=== PATIENT | male | born 1950 | race Caucasian/White ===

== ENCOUNTER 2021-01-10 06:37 | Emergency (ER) | payer MEDICARE, BC, SELFPAY ==
[2021-01-10] VITALS (7 sets, daily range): BP systolic 105–130; BP diastolic 63–87; PULSE 55–71; RESP 13–18; TEMP 36.3; O2SAT 96–100
--- NOTE | ~2021-01-10 | XR_ITS ---
EXAMINATION: XR chest 1V portable DATE: 01/10/2021 07:25 INDICATION: Chest pain post stent placement TECHNIQUE: frontal view of the chest was obtained. COMPARISON: Chest radiograph dated 02/26/2009 FINDINGS: Lung volumes are mildly decreased compared with the prior study. No focal airspace opacities, pulmona ry edema, pleural effusion or pneumothorax. Cardiomediastinal silhouette is normal. Visualized bones and soft tissues are unremarkable. IMPRESSION: 1. No acute cardiopulmonary disease. Reviewed, dictated and finalized at location A.
--- NOTE | 2021-01-10 06:39 | PC.NURSE ---
Pt presents to ED with complaints of chest pain that onset yesterday evening. Pt given 324 asa and nitro x3 by ems while en route with pain relief. Pt denies chest pain and sob at this time. Pt states he had x1 cardiac stent placed x3 days ago. Pt alert and oriented x4 at this time. Breathing is even and unlabored with O2 saturation of 100%. Pt states chest pain was persistent for over 24 hours and was sharp and burning pressure to midsternum. Pt denies nausea, emesis and visual disturbances at time of onset. Pt placed on liquid flavor compounder, pulse oximeter and BP cuff. Pt resting on cart in its lowest position with call button and personal items within reach. Pt advised to press call button for assistance.
--- NOTE | 2021-01-10 06:45 | PC.NURSE ---
EKG completed upon arrival. Son presented to bedside and is aware of poc. All questions and concerns addressed.
[2021-01-10] MEDS: ASPIRIN 81 MG CHEWABLE TABLET PO (06:56)
[2021-01-10 07:04] LABS: Basophils Percent Auto 0.5 % (0.2-1.2); Eosinophils Absolute Auto 0.2 K/mm3 (0-0.3); Eosinophils Percent Auto 3.7 % (0-4.4); Hemoglobin 12.6 g/dL (14.0-18.0); Immature Granulocyte Absolute 0.01 K/mm3 (0.00-0.031); Immature Granulocyte Percent A 0.2 % (0-0.5); Lymphocytes Absolute Auto 1.37 K/mm3 (0.9-3.2); Lymphocytes Percent Auto 31.9 % (18.3-44.2); Mean Corpuscular Hemoglobin 31.3 pg (26-34); Mean Corpuscular Volume 89.6 fl (80-100); Monocytes Absolute Auto 0.4 K/mm3 (0.1-0.6); Monocytes Percent Auto 9.3 % (2.6-8.5); Neutrophils Absolute Auto 2.3 K/mm3 (1.3-6.7); Neutrophils Percent Auto 54.4 % (45.5-73.1); Platelet Count Result 154 k/mm3 (150-375); Red Blood Count 4.02 M/mm3 (4.6-6.20); Red Cell Distribution Width 12.5 % (11.5-14.5); White Blood Count 4.3 K/mm3 (4.5-10.0)
[2021-01-10 07:14] LABS: Alanine Aminotransferase 14 U/L (4-50); Alkaline Phosphatase 36 U/L (38-126); Anion Gap 4 mmol/L (8-16); Aspartate Amino Transferase 19 U/L (17-59); Bilirubin,Total 0.9 mg/dL (0.2-1.3); Blood Urea Nitrogen 13 mg/dL (9-20); Calcium 9.4 mg/dL (8.4-10.2); Carbon Dioxide 27 mmol/L (22-30); Chloride 108 mmol/L (98-107); Estimated CRCL calculation 45 ml/min; Estimated Glomerular Filt Rate 50; Glucose 114 mg/dL (75-110); Lipase 55 U/L (23-300); Potassium 3.7 mmol/L (3.4-5.0); Sodium 139 mmol/L (137-145)
[2021-01-10 07:17] LABS: Prothrombin Time 13.8 Seconds (11.1-14.7)
[2021-01-10 07:18] LABS: Partial Thromboplastin Time 22.4 SECONDS (22.3-36.8)
[2021-01-10 07:25] LABS: NT Pro B Type Natriuretic Pept 128 PG/ML (5-100); Troponin I 0.025 ng/mL (0.000-0.034)
--- NOTE | 2021-01-10 07:51 | ED.CHESTPAIN ---
HPI - Chest Pain General Chief Complaint: Chest Pain Stated Complaint: CP Time Seen by Provider: 01/10/21 07:28 Source: patient, family and EMS Mode of arrival: EMS Limitations: no limitations History of Present Illness HPI narrative: 70 years old white male presented to the ED with retrosternal chest pain started yesterday noon has been steady since. Got better on nitroglycerin this morning, and much better on nitroglycerin by the ambulance prior to arrival. The pain was 8 out of 10 yesterday, currently 2 out of 10. Patient is status post cardiac cath, stent placement 3 days ago, got discharged from the hospital 1 day later. Patient denies any fever, chills, nausea, vomiting, diarrhea, constipation, shortness of breath, back pain. Patient had a cardiac cath at , Dr. Hernandez, the dam tender assistant Related Data Home Medications Medication Instructions Recorded Confirmed aspirin 325 mg tablet 325 mg PO DAILY 08/09/19 09/11/20 cyanocobalamin (vitamin B-12) 500 500 mcg PO DAILY 08/09/19 09/11/20 mcg tablet Allergies Allergy/AdvReac Type Severity Reaction Status Date / Time No Known Allergies Allergy Verified 01/10/21 06:55 Review of Systems Review of Systems: Narrative: CONSTITUTIONAL: Denies fever, chills, or sweats. EYES: Denies visual changes, redness, or discharge. ENT: Denies rhinorrhea, congestion, sore throat, or otalgia. CARDIOVASCULAR: Denies chest pain, palpitations, or edema. RESPIRATORY: Denies cough or dyspnea. GASTROINTESTINAL: Denies abdominal pain, nausea, vomiting, or diarrhea. GENITOURINARY: Denies dysuria or hematuria. SKIN: Denies rash or itching. MUSCULOSKELETAL: Denies back pain, joint pain, or myalgia. NEUROLOGIC: Denies headache, numbness, or weakness. PSYCHIATRIC: Denies anxiety or depression. [facility] Past Medical History Medical History Abnormal fasting glucose Diplopia Family History Family History Mother Diabetes mellitus Family history of cardiovascular disease, Onset Age: 56 Grandparent Diabetes mellitus Family history of cardiovascular disease Cerebrovascular accident Father Family history of cardiovascular disease, Onset Age: 76 Cerebrovascular accident Social History Social History Smoking status: Never smoker Alcohol intake: never Exam Narrative: Exam Narrative: General appearance: Well-developed, well-nourished Skin: Normal color Head: Normocephalic, nontraumatic Eyes: Clear conjunctiva ENT: Oropharynx normal, ears normal, nose normal Neck: Supple, nontender Chest and respiratory: Airway patent, no respiratory distress, no accessory muscle use Heart: Regular rate/rhythm Abdomen: Soft, nontender, no organomegaly, quiet bowel sounds Vascular: Normal peripheral pulses, normal capillary refill. Musculoskeletal: Normal range of motion, nontender back Neurologic: Alert and oriented ?3, MANAGER ADMINISTRATIVE is normal as tested, no gross motor deficit Course Course Emergency Course: Improving Consultations Consultation #1: DR PEMBERTON, dam tender assistant at who accepted patient transfusion Date: 01/10/21 Time: 08:59 Vital Signs Vital signs: Vital Signs Temperature 36.3 C L 01/10/21 06:31 Pulse Rate 71 01/10/21 06:31 Respiratory Rate 13 01/10/21 06:31 Pulse Oximetry 100 01/10/21 06:31 Temperature 36.3 C L 01/10/21 06:37 Pulse Rate 68 01/10/21 06:37 Respiratory Rate 13 01/10/21 06:37 Blood Pressure 130/87 01/10/21 06:37 Pulse Oximetry 100 01/10/21 06:37
[2021-01-10] MEDS: MORPHINE SULFATE (*CRX) 4 MG/ML INJ IV PUSH (08:46)
[2021-01-10] MEDS: ONDANSETRON INJ 4 MG/2 ML VIAL IV PUSH (08:46)
--- NOTE | 2021-01-10 08:49 | ECG_ITS ---
Measurements Intervals [place] Rate: 65 P: 59 NM: 146 QRS: 52 QRSD: 101 T: 46 QT: 412 QTc: 428 Interpretive Statements SINUS RHYTHM MINIMAL Q WAVES- INFERIOR LEADS BASELINE ARTIFACT- II, III, AVR, AVF, V1, V3-V6 BORDERLINE ECG Electronically Signed On 01-10-2021 10:37:10 CDT by Ch[place] Boyd D.O.
[2021-01-10] MEDS: BELLADONNA ALK/PHENOB ELIX 10 ML, MAG HYDROX/ALUMINUM HYD/SIMETH 30 ML, LIDOCAINE HCL 2... PO (09:17)
[2021-01-10 10:28] LABS: Troponin I 0.023 ng/mL (0.000-0.034)
== END 2021-01-10 11:06 | disposition short-term general hospital (02) ==
PROVIDERS: Emergency Medicine; Emergency Provider Emergency Medicine; PCP Family Medicine
DX: R07.2 Precordial pain (principal); R94.31 Abnormal electrocardiogram [ECG] [EKG]; Z95.5 Presence of coronary angioplasty implant and graft; Z79.82 Long term (current) use of aspirin
CPT/HCPCS: 36415; 71045; 80053; 83690; 83880; 84484; 85025; 85610; 85730; 93005; 96374; 96375; 99285; A9270; J2270; J2405

== ENCOUNTER 2022-03-16 00:55 | Day surgery (SDC) | payer MEDICARE, BC, SELFPAY ==
[2022-03-09 15:18] VITALS: BMI 23.6
[2022-03-16 11:30] VITALS: BP 134/86; PULSE 63; RESP 18; TEMP 36.7; O2SAT 98
[2022-03-16] MEDS: LACTATED RINGERS 1,000 ML 150 ML IV CONT (11:39)
--- NOTE | 2022-03-16 11:47 | WPDGICN ---
Assessment and Plan Assessment and plan (1) Atypical chest pain: Code(s): R07.89 - Other chest pain Status: Acute Assessment and Plan: Patient with chest pain that appears to improve on taking PPI therapy. Most consistent with dyspepsia and likely acid reflux. Plan for EGD to assess more thoroughly. Continue anti-reflux measures and Protonix. (2) Epigastric abdominal pain: Code(s): R10.13 - Epigastric pain Status: Acute Assessment and Plan: Epigastric pain that improves on taking pantoprazole most consistent with dyspepsia. Plan is for EGD to assess more thoroughly. (3) Coronary artery disease involving [place] coronary artery of [place] heart without angina pectoris: Code(s): I25.10 - Atherosclerotic heart disease of [place] coronary artery without angina pectoris Status: Acute GI Consult Note Consult date/time: 03/16/22 11:47 Reason for consult: Epigastric and chest pain. HPI: Edgardo Davis is a 71 year old male Presents for EGD. Patient has a known history of coronary artery disease. He has a history of heart stents. He recently has had stub sternal and epigastric discomfort. This is improved on taking pantoprazole. Patient presents today for EGD to assess for possible ulcer or esophagitis. Patient states his pain does well when he takes this medication which was initially started empirically. Family history is noncontributory. Review of Systems Review of Systems: Review of systems noncontributory. [facility] Past Medical History Medical History (Updated 03/16/22 @ 11:49 by Yo Beltran MD) Abdominal pain Abnormal fasting glucose Atypical chest pain BMI 23.0-23.9, adult BMI 24.0-24.9, adult Candidiasis of scrotum Cellulitis, scrotum Contact dermatitis Diplopia Dry skin Eczema Essential hypertension GERD (gastroesophageal reflux disease) Seborrhea Family History Family History Mother Diabetes mellitus Family history of cardiovascular disease, Onset Age: 56 Grandparent Diabetes mellitus Family history of cardiovascular disease Cerebrovascular accident Father Family history of cardiovascular disease, Onset Age: 76 Cerebrovascular accident Social History Social History Smoking packs per day: 1 Smoking cigarettes per day: 20.0 Years smoked: 15 Smoking pack-years: 15.00 Smoking status: Former smoker Tobacco type: cigarettes Alcohol intake: never Substance use: never Substance use type: does not use Living arrangements: with family Spiritual care concerns: No Meds Home Medications and Allergies Home Medications Medication Instructions Recorded Confirmed Type aspirin 81 mg tablet,delayed 81 mg PO DAILY 01/21/21 03/09/22 History release (Adult Aspirin Regimen) atorvastatin 40 mg tablet 40 mg PO DAILY 01/21/21 03/09/22 History ticagrelor 90 mg tablet (Brilinta) 90 mg PO Q12H #180 tabs 04/22/21 03/09/22 Rx carvedilol 3.125 mg tablet 3.125 mg PO BID #180 tabs 08/10/21 03/09/22 Rx ramipril 10 mg capsule 10 mg PO DAILY #90 caps 08/10/21 03/09/22 Rx cyclobenzaprine 10 mg tablet 10 mg PO TID PRN muscle spasm #60 09/07/21 03/09/22 Rx tabs levothyroxine 50 mcg tablet 50 mcg PO DAILY #90 tabs 09/14/21 03/09/22 Rx arginine HCl (L-arginine) 1,000 mg 1,000 mg PO DAILY 11/05/21 03/09/22 History tablet hydrocodone 7.5 mg-acetaminophen 1 tablet PO Q6H PRN pain #120 tabs 02/18/22 03/09/22 Rx 325 mg tablet mometasone 0.1 % topical cream 1 applic topical DAILY PRN rash 2 02/25/22 03/09/22 Rx weeks #15 grams nitroglycerin 0.4 mg sublingual 0.4 mg sublingual Q5M PRN chest 02/25/22 03/09/22 Rx tablet pain #60 tabs pantoprazole 40 mg tablet,delayed 40 mg PO QAM #30 tabs 02/25/22 03/09/22 Rx release (Protonix) triamcinolone acetonide 0.5 % 1 applic topical BID #30 grams
--- NOTE | 2022-03-16 11:55 | WPDANESEPPF ---
Anes - Initial Pre Proc Eval Procedure: Operation Date: 03/16/22 13:00 Proposed Procedures p Esophagogastroduodenoscopy - Yo Beltran MD Date/Time: 03/16/22 11:55 Surgeon: Yo Beltran MD Pre Op Diagnosis: GERD, epigastric pain Patient Data Age: 71 Gender: M Height: 1.75 m Weight: 71.8 kg Last Vital Signs Temp 36.7 C 03/16/22 11:30 Pulse 63 03/16/22 11:30 Resp 18 03/16/22 11:30 BP 134/86 03/16/22 11:30 Pulse Ox 98 03/16/22 11:30 O2 Del Method Room Air 03/16/22 11:30 Allergies Allergy/AdvReac Type Severity Reaction Status Date / Time No Known Allergies Allergy Verified 03/16/22 11:29 Home Medications Medication Instructions Recorded Confirmed Type aspirin 81 mg tablet,delayed 81 mg PO DAILY 01/21/21 03/09/22 History release (Adult Aspirin Regimen) atorvastatin 40 mg tablet 40 mg PO DAILY 01/21/21 03/09/22 History ticagrelor 90 mg tablet (Brilinta) 90 mg PO Q12H #180 tabs 04/22/21 03/09/22 Rx carvedilol 3.125 mg tablet 3.125 mg PO BID #180 tabs 08/10/21 03/09/22 Rx ramipril 10 mg capsule 10 mg PO DAILY #90 caps 08/10/21 03/09/22 Rx cyclobenzaprine 10 mg tablet 10 mg PO TID PRN muscle spasm #60 09/07/21 03/09/22 Rx tabs levothyroxine 50 mcg tablet 50 mcg PO DAILY #90 tabs 09/14/21 03/09/22 Rx arginine HCl (L-arginine) 1,000 mg 1,000 mg PO DAILY 11/05/21 03/09/22 History tablet hydrocodone 7.5 mg-acetaminophen 1 tablet PO Q6H PRN pain #120 tabs 02/18/22 03/09/22 Rx 325 mg tablet mometasone 0.1 % topical cream 1 applic topical DAILY PRN rash 2 02/25/22 03/09/22 Rx weeks #15 grams nitroglycerin 0.4 mg sublingual 0.4 mg sublingual Q5M PRN chest 02/25/22 03/09/22 Rx tablet pain #60 tabs pantoprazole 40 mg tablet,delayed 40 mg PO QAM #30 tabs 02/25/22 03/09/22 Rx release (Protonix) triamcinolone acetonide 0.5 % 1 applic topical BID #30 grams 02/25/22 03/09/22 Rx topical cream cholecalciferol (vitamin D3) 25 25 mcg PO DAILY 03/09/22 03/09/22 History mcg (1,000 unit) tablet (Vitamin D3) Patient hx anesthesia problems: none Family hx anesthesia problems: none Results Review: All pre-operative results and documents have been reviewed as part of the pre-operative evaluation. [facility] Past Medical History Medical History Abdominal pain Abnormal fasting glucose Atypical chest pain BMI 23.0-23.9, adult BMI 24.0-24.9, adult Candidiasis of scrotum Cellulitis, scrotum Contact dermatitis Diplopia Dry skin Eczema Essential hypertension GERD (gastroesophageal reflux disease) Seborrhea Family History Family History Mother Diabetes mellitus Family history of cardiovascular disease, Onset Age: 56 Grandparent Diabetes mellitus Family history of cardiovascular disease Cerebrovascular accident Father Family history of cardiovascular disease, Onset Age: 76 Cerebrovascular accident Social History Social History Smoking packs per day: 1 Smoking cigarettes per day: 20.0 Years smoked: 15 Smoking pack-years: 15.00 Smoking status: Former smoker Tobacco type: cigarettes Alcohol intake: never Substance use: never Substance use type: does not use Living arrangements: with family Spiritual care concerns: No Anes - Eval Final PreProcedure Day of Procedure 03/16/22 11:55 Patient weight: normal Heart: regular rate and rhythm Lungs: clear to auscultation Airway: Mallampati scale Neurological: alert and oriented Last oral intake: >/= 8 hours ASA classification: III Anesthetic plan: proceed Anesthesia type and monitoring: general GIVS and standard monitoring Results Review: All pre-operative results and documents have been reviewed as part of the pre-operative evaluation. Informed Consent: The patient's anesthetic plan and its at
[2022-03-16 12:49] VITALS: BP 104/60; PULSE 56; RESP 17; O2SAT 97
[2022-03-16 12:59] VITALS: BP 122/67; PULSE 55; RESP 15; O2SAT 99
[2022-03-16 13:09] VITALS: BP 125/74; PULSE 52; RESP 17; O2SAT 99
== END 2022-03-16 13:16 | disposition home or self-care (01) ==
PROVIDERS: PCP Family Medicine; Visit Provider Internal Medicine Gastroenterology
PROC: 0DJ08ZZ Inspection of Upper Intestinal Tract, Via Natural or Artificial Opening Endoscopic (ICD-10-PCS; CPT 43235; principal; 2022-03-16 13:00)
DX: R10.13 Epigastric pain (principal); R07.89 Other chest pain; I10 Essential (primary) hypertension; K21.9 Gastro-esophageal reflux disease without esophagitis; I25.10 Atherosclerotic heart disease of native coronary artery without angina pectoris; Z87.891 Personal history of nicotine dependence; Z79.01 Long term (current) use of anticoagulants; Z79.82 Long term (current) use of aspirin
CPT/HCPCS: 43239; 87081; J2704; J7120

== ENCOUNTER → 2023-01-25 11:02 | Outpatient (CLI) | payer MEDICARE, BC, SELFPAY ==
--- NOTE | ~2023-01-25 | XR_ITS ---
Right Humerus Technique: AP and lateral views were obtained. Clinical History: Pain Findings: No fracture or dislocation is seen. Osseous alignment is anatomic. Visualized joint spaces are grossly preserved. Soft tissues are unremarkable. Impression: Unremarkable examination. No fracture or dislocation. Reviewed, dictated and finalized at location . Impression: Unremarkable examination. No fracture or dislocation.
--- NOTE | ~2023-01-25 | XR_ITS ---
Right Shoulder Technique: AP and axillary views were obtained. Clinical History: Pain Findings: No fracture or dislocation is seen. Osseous alignment is anatomic. There is mild AC joint d egenerative change. Glenohumeral joint is intact. Soft tissues are unremarkable. Impression: No fracture or dislocation. Mild AC joint degenerative change. Reviewed, dictated and finalized at location . Impression: No fracture or dislocation. Mild AC joint degenerative change.
== END ==
PROVIDERS: PCP Family Medicine; Visit Provider Nurse Practitioner Family
DX: M79.621 Pain in right upper arm (principal); M19.011 Primary osteoarthritis, right shoulder; M19.012 Primary osteoarthritis, left shoulder
CPT/HCPCS: 73030; 73060

== ENCOUNTER → 2023-05-13 08:28 | Outpatient (CLI) | payer MEDICARE, BC, SELFPAY ==
--- NOTE | ~2023-05-13 | MR_ITS ---
EXAMINATION: MR shoulder RT wo con DATE: 05/13/2023 09:10 INDICATION: Right shoulder pain TECHNIQUE: Magnetic resonance imaging (MRI) of the right shoulder was performed without intravenous c ontrast. Sequences included axial PD-weighted FS FSE, coronal oblique PD-weighted FS FSE, coronal obl ique T2-weighted FS FSE, sagittal PD-weighted FS FSE, and sagittal T1-weighted SE. COMPARISON: Radiographs dated 02/02/2023 FINDINGS: Coracoacromial arch: The acromion undersurface is curved in morphology (type II). There is a moderate sized anterior subac romial spur at the acromial insertion of the normal coracoacromial ligament. Moderate acromioclavicul ar osteoarthritis. Rotator cuff: Moderate supraspinatus and infraspinatus tendinopathy. There is a full-thickness tear along the super ior facet of the greater tuberosity of the supraspinatus tendon. The tear measures 2.5 cm AP along th e footplate with 3 cm medial retraction of the tear margin. The tear extends anteriorly across the ro tator cuff interval with additional full-thickness tear involving the cephalad two thirds of the less er tuberosity footplate of the tendon. The teres minor tendon is normal. There is severe fatty atroph y of the subscapularis muscle belly suggesting is a portion of the tear is chronic. There is decrease d cross-sectional area and flattened cephalad margin to the supraspinatus muscle belly at the suprasp inatus fossa which is most likely related primarily to retraction of the muscle belly with no appreci able fatty replacement of the muscle tissue. Biceps tendon, glenoid labrum and glenohumeral cartilage: Complete tear of the intra-articular portion of the long head biceps tendon with the frayed and atten uated distal tear margin retracted into the intertubercular groove. There is degenerative tearing yokasta ng the superior glenoid labrum. 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 There is partial thickness cartilage lo ss with smooth chondral surface along the cephalad third of the glenoid and along the medial and supe rior to posterosuperior aspect of the humeral head. Fluid: Small glenohumeral joint effusion with extension of fluid through the full-thickness rotator cuff tea r into the subacromial/subdeltoid bursa. Mild synovitis at the axillary recess. No loose osteochondra l bodies. Bones/other: There is cephalad subluxation of the humeral head with respect to the glenoid with significant narrow ing of the subacromial space resulting from the rotator cuff tear. No fracture or pathologic marrow r eplacing process. Mild cystic change at the greater tuberosity. There is fluid signal extending along a portion of the myotendinous junction the posterior head of the deltoid without discrete interrupti on of the tendon slip consistent with likely low-grade strain. IMPRESSION: 1. Full-thickness tear involving the majority of the supraspinatus tendon extending across the rotato r cuff interval anteriorly to involve the cephalad two thirds of the subscapularis tendon. The subsca pularis portion of the tear is likely chronic given the severe associated fatty atrophy. 2. Mild glenohumeral osteoarthritis with degenerative tearing of the superior glenoid labrum. 3. Full-thickness tear and distal retraction of the intra-articular long head biceps tendon. 4. Moderate acromioclavicular osteoarthritis and moderate sized anterior subacromial spur. Reviewed, dictated and finalized at location A. IMPRESSION: 1. Full-thickness tear involving the majority of the supraspinatus tendon exten ding across the rotator cuff interval anteriorly to involve the cephalad two th irds of the subscapularis tendon. The subscapularis portion of the tear is like ly chronic
== END ==
PROVIDERS: PCP Family Medicine; Visit Provider Nurse Practitioner
DX: M19.011 Primary osteoarthritis, right shoulder (principal); S46.111A Strain of muscle, fascia and tendon of long head of biceps, right arm, initial encounter; S46.011A Strain of muscle(s) and tendon(s) of the rotator cuff of right shoulder, initial encounter; X58.XXXA Exposure to other specified factors, initial encounter
CPT/HCPCS: 73221

== ENCOUNTER 2025-06-10 01:32 | Day surgery (SDC) | payer MEDICARE, BC, SELFPAY ==
[2025-02-05 14:39] VITALS: BMI 25.1
--- OUTSIDE RECORDS SUMMARY | 2025-02-14 01:58 | XMS_ITS | Encounter Summary ---
Author Organization [employer] Address [address] [place] [address] Care Team Providers Care Operations Lead Name Role Phone Unavailable Primary Care Provider Unavailabl e Encounter Details Date Type Department Care Team (Latest Contact Info) Description 09/21/2006 Outpatient Historical HIS PATIENT IN A BED Dung Arthur MD [id number] [facility] [address] [address] Coronary Atherosclerosis of [place] Coronary Artery (Primary Dx) Social History Tobacco Use Types Packs/Day Years Used Date Smoking Tobacco: Never Assessed Sex and Gender Information Value Date Recorded Sex Assigned at Not on file Legal Sex Male 5:11 AM STARCH COOKER Gender Identity Not on file Sexual Orientation Not on file documented as of this encounter Plan of Treatment Not on file documented as of this encounter Procedures Procedure Name Priority Date/Time Associated Diagnosis Comments TROPONIN (W/REFLEX CKMB/CK) Routine 09/22/2006 5:00 AM STARCH COOKER CBC WITH DIFFERENTIAL Routine 09/22/2006 5:00 AM STARCH COOKER CBC WITH DIFFERENTIAL Routine 09/22/2006 5:00 AM STARCH COOKER CBC WITH DIFFERENTIAL Routine 09/21/2006 4:34 PM STARCH COOKER CBC WITH DIFFERENTIAL Routine 09/21/2006 4:34 PM STARCH COOKER POC ACTIVATED CLOTTING TIME Routine 09/21/2006 4:17 PM STARCH COOKER POC ACTIVATED CLOTTING TIME Routine 09/21/2006 2:55 PM STARCH COOKER POC ACTIVATED CLOTTING TIME Routine 09/21/2006 11:57 AM STARCH COOKER documented in this encounter Results * CBC WITH DIFFERENTIAL (09/22/2006 5:00 AM STARCH COOKER) NEUTROPHILS 65 45 - 70 % INTERFAC E SYSTEM LYMPHOCYTES 23 16 - 45 % INTERFAC E SYSTEM MONOCYTES 9 3 - 13 % INTERFACE SYSTEM EOSINOPHILS 2 0 - 7 % INTERFAC E SYSTEM BASOPHILS 0 0 - 2 % INTERFACE SYSTEM NEUTROPHIL ABSOLUTE 4.59 1.90 - 7.00 K/uL INTERFACE SYSTEM LYMPHOCYTE ABSOLUTE 1.64 0.70 - 4.50 K/uL INTERFACE SYSTEM MONOCYTE ABSOLUTE 0.64 0.10 - 1.30 K/uL INTERFACE SYSTEM EOSINOPHIL ABSOLUTE 0.17 0.00 - 0.70 K/uL INTERFACE SYSTEM BASOPHILS ABSOLUTE 0.02 0.00 - 0.20 K/uL INTERFACE SYSTEM 09/22/2006 5:00 AM STARCH COOKER Dung Arthur MD HEMATOLOGY ORDERABLES Fin al Result Performing Organization Address City/State/[facility] Co de Phone Number INTERFACE SYSTEM Refer to clinic/hospital department * (ABNORMAL) CBC WITH DIFFERENTIAL (09/22/2006 5:00 AM STARCH COOKER) Pathologist [facility] WBC 7.1 4.0 - 9.8 K/uL INTERFACE SYSTEM RBC 4.22(L) 4.50 - 5.40 M/uL INTERFACE SYSTEM HEMOGLOBIN 13.0(L) 13.6 - 16.5 g/dL INTERFACE SYSTEM HEMATOCRIT 36.3(L) 40.0 - 48.0 % INTERFACE SYSTEM MCV 86.0 82.0 - 99.0 fL INTERFACE SYSTEM MCH 30.8 27.2 - 32.6 pg INTERFACE SYSTEM MCHC 35.8(H) 31.5 - 35.5 % INTERFACE SYSTEM RDW 12.7 11.5 - 14.5 % INTERFACE SYSTEM RDW-STDEV 39.4 37.1 - 48.7 fL INTERFACE SYSTEM PLATELETS 221 140 - 350 K/uL INTERFACE SYSTEM MPV 11.3 9.3 - 12.4 fL INTERFACE SYSTEM 09/22/2006 5:00 AM STARCH COOKER Dung Arthur MD HEMATOLOGY ORDERABLES Fin al Result Performing Organization Address [facility] de Phone Number INTERFACE SYSTEM Refer to clinic/hospital department * TROPONIN (W/REFLEX CKMB/CK) (09/22/2006 5:00 AM STARCH COOKER) Pathologist [facility] TROPONIN T 0.01 <=0.03 ng/mL INTERFACE SYSTEM TROPONIN T INTERP Negative INTERFACE SYSTEM 09/22/2006 5:00 AM STARCH COOKER Dung Arthur MD CHEMISTRY ORDERABLES Rebekah l Result Performing Organization Address [facility] de Phone Number INTERFACE SYSTEM Refer to clinic/hospital department * CBC WITH DIFFERENTIAL (09/21/2006 4:34 PM STARCH COOKER) Pathologist [facility] NEUTROPHILS 57 45 - 70 % INTERFAC E SYSTEM LYMPHOCYTES 31 16 - 45 % INTERFAC E SYSTEM MONOCYTES 8 3 - 13 % INTERFACE SYSTEM EOSINOPHILS 4 0 - 7 % INTERFAC E SYSTEM BASOPHILS 0 0 - 2 % INTERFACE SYSTEM NEUTROPHIL ABSOLUTE 3.05 1.90 - 7.00 K/uL INTERFACE SYSTEM LYMPHOCYTE ABSOLUTE 1.67 0.70 - 4.50 K/uL INTERFACE SYSTEM MONOCYTE ABSOLUTE 0.41 0.10 - 1.30 K/uL INTERFACE SYSTEM EOSINOPHIL ABSOLUTE 0.20 0.00 - 0.70 K/uL INTERFACE SYSTEM BASOPHILS ABSOLUTE 0.02 0.00 - 0.20 K/uL INTERFACE SYSTEM 09/21/2006 4:34 PM STARCH COOKER Dung Arthur MD HEMATOLOGY ORDERABLES Fin al Result Performing Organization Address [facility] de Phone Number INTERFACE SYSTEM Refer to clinic/hospital department * (ABNORMAL) CBC WITH DIFFERENTIAL (09/21/2006 4:34 PM STARCH COOKER) Pathologist [facility] WBC 5.4 4.0 - 9.8 K/uL INTERFACE SYSTEM RBC 4.09(L) 4.50 - 5.40 M/uL INTERFACE SYSTEM HEMOGLOBIN 12.7(L) 13.6 - 16.5 g/dL INTERFACE SYSTEM HEMATOCRIT 35.0(L) 40.0 - 48.0 % INTERFACE SYSTEM MCV 85.6 82.0 - 99.0 fL INTERFACE SYSTEM MCH 31.1 27.2 - 32.6 pg INTERFACE SYSTEM MCHC 36.3(H) 31.5 - 35.5 % INTERFACE SYSTEM RDW 12.5 11.5 - 14.5 % INTERFACE SYSTEM RDW-STDEV 39.0 37.1 - 48.7 fL INTERFACE SYSTEM PLATELETS 207 140 - 350 K/uL INTERFACE SYSTEM MPV 11.3 9.3 - 12.4 fL INTERFACE SYSTEM 09/21/2006 4:34 PM STARCH COOKER Dung Arthur MD HEMATOLOGY ORDERABLES Fin al Result Performing Organization Address [facility] Phone Number INTERFACE SYSTEM Refer to clinic/hospital department * POC ACTIVATED CLOTTING TIME (09/21/2006 4:17 PM STARCH COOKER) ACT POC 132 Seconds INTERFACE SYSTEM Comment: Note sheath pull range change effective 03/18/2006. ACT value for sheath pull at [facility] has been established to be < or = to 1 40. (See also Nursing Procedures for sheath pull in related nursing areas) 09/21/2006 4:17 PM STARCH COOKER Dung Arthur MD POINT OF CARE TESTING Fin al Result Performing Organization Address [facility] Phone Number INTERFACE SYSTEM Refer to clinic/hospital department * POC ACTIVATED CLOTTING TIME (09/21/2006 2:55 PM STARCH COOKER) ACT POC 164 Seconds INTERFACE SYSTEM Comment: Note sheath pull range change effective 03/18/2006. ACT value for sheath pull at [facility] has been established to be < or = to 1 40. (See also Nursing Procedures for sheath pull in related nursing areas) 09/21/2006 2:55 PM STARCH COOKER Dung Arthur MD POINT OF CARE TESTING Fin al Result Performing Organization Address [facility] Phone Number INTERFACE SYSTEM Refer to clinic/hospital department * POC ACTIVATED CLOTTING TIME (09/21/2006 11:57 AM STARCH COOKER) ACT POC 151 Seconds INTERFACE SYSTEM Comment: Note sheath pull range change effective 03/18/2006. ACT value for sheath pull at [facility] has been established to be < or = to 1 40. (See also Nursing Procedures for sheath pull in related nursing areas) 09/21/2006 11:5 7 AM STARCH COOKER us Dung Arthur MD POINT OF CARE TESTING Estrada al Result INTERFACE SYSTEM Refer to clinic/hospital department documented in this encounter Visit Diagnoses Diagnosis Coronary atherosclerosis of [place] coronary artery- Primary documented in this encounter
--- OUTSIDE RECORDS SUMMARY | 2025-02-14 01:58 | XMS_ITS | Clinical Summary ---
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
--- OUTSIDE RECORDS SUMMARY | 2025-02-14 01:58 | XMS_ITS | CONTINUITY OF CARE DOCUMENT ---
Author Name burton manrique Address Unknown Organization [facility] Address [address] [address] [facility] [address] [place] [address] Phone [phone] Care Team Providers Care Certified Maintenance Welder Name Role Phone burton manrique Unavailable Unavailable
--- NOTE | 2025-02-14 08:15 | SUR.PREOP ---
Patient called and said he mixed his prep with 1 gallon of water instead of 64 ox and he states his bowel movements are not clear. Instructed to reschedule- office notified.
[2025-05-28 14:48] VITALS: BMI 25.1
[2025-06-10 06:57] VITALS: BP 146/75; PULSE 69; RESP 18; TEMP 36.4; O2SAT 97
[2025-06-10] MEDS: LACTATED RINGERS 1,000 ML 150 ML IV CONT (07:16)
--- NOTE | 2025-06-10 07:30 | P.PNAN_ITS ---
Anes - Initial Pre Proc Eval Procedure: Operation Date: 06/10/25 08:00 Proposed Procedures p Screening Colonoscopy - Jack Silva MD Date/Time: 06/10/25 07:30 Surgeon: Jack Silva MD Pre Op Diagnosis: Screening Patient Data Age: 74 Gender: M Height: 1.75 m Weight: 75.8 kg Last Vital Signs Temp 97.5 F L 06/10/25 06:57 Pulse 69 06/10/25 06:57 Resp 18 06/10/25 06:57 BP 146/75 H 06/10/25 06:57 Pulse Ox 97 06/10/25 06:57 O2 Del Method Room Air 06/10/25 06:57 Allergies Allergy/AdvReac Type Severity Reaction Status Date / Time No Known Allergies Allergy Verified 06/10/25 06:53 Home Medications ?Medication ?Instructions ?Recorded ?Confirmed ?Type aspirin 81 mg tablet,delayed 81 mg PO DAILY 01/21/21 0 05/28/25 History release (Adult Aspirin Regimen) arginine HCl (L-arginine) 1,000 mg 1,000 mg PO DAILY 0 11/05/21 05/28/25 History tablet nitroglycerin 0.4 mg sublingual 0.4 mg sublingual Q5M PRN chest 02/25/22 02/05/25 Rx tablet pain #60 tabs cholecalciferol (vitamin D3) 25 1,000 unit PO DAILY 05/28/25 History mcg (1,000 unit) tablet (Vitamin D3) fluorouracil 5 % topical cream 1 applic topical BID TN N lesions 02/15/24 History (Efudex) tizanidine 4 mg tablet 4 mg PO TID PRN muscle spast icity 04/18/24 02/05/25 Rx #60 tabs atorvastatin 40 mg tablet 40 mg PO DAILY #90 tabs 08/2605/28/25 Rx folic acid 1 mg tablet 1 mg PO DAILY #30 tabs 09/1305/28/25 Rx pantoprazole 40 mg tablet,delayed 40 mg PO QAM #90 tab s 09/17/24 05/28/25 Rx release (Protonix) carvedilol 3.125 mg tablet 3.125 mg PO BID #180 tabs 0 10/15/24 05/28/25 Rx ramipril 10 mg capsule 10 mg PO DAILY #90 caps 10/2805/28/25 Rx cyanocobalamin (vitamin B-12) 1,000 mcg PO DAILY 12/0305/28/25 History 1,000 mcg tablet dapagliflozin propanediol 10 mg 10 mg PO QAM #30 tabs 12/03/24 05/28/25 Rx tablet (Farxiga) levothyroxine 50 mcg tablet 50 mcg PO DAILY #90 tabs 0 01/28/25 05/28/25 Rx hydrocodone 7.5 mg-acetaminophen 1 tablet PO Q6H PRN p ain #120 tabs 02/11/25 05/28/25 Rx 325 mg tablet Patient hx anesthesia problems: none Family hx anesthesia problems: none Results Review: All pre-operative results and documents have been reviewed as part of the pre- operative evaluation. REPLACED BY [facility] Past Medical History Medical History History of heart attack 2006 CAD (coronary artery disease) Colon cancer screening COVID (04/29/22) fully vaccinated, tested positive 05/01/2022. Requests treatment, Paxlovid. COVID-19 10/24/2023. Renal insufficiency BUN 11 with creatinine 1.37 with GFR 56 08/30/2022. BUN 10, creatinine 1.31 with GFR 59 on 03/14/2023. BUN 12, creatinine 1.16 with GFR normal at 67 on 10/31/2023. Chronic kidney disease (CKD) stage G3a/A1, moderately decreased glomerular filtration rate (GFR) between 45-59 mL/min/1.73 square meter and albuminuria creatinine ratio less than 30 mg/g BUN 11 with creatinine 1.37 with GFR 56 08/30/2022. BUN 10, creatinine 1.31 with GFR 59 on 03/14/2023. BUN 12, creatinine 1.16 with GFR normal at 67 on 10/31/2023. BUN 50, creatinine 1.35 with GFR 56 of 11/30/2024. At low risk for fall Elevated glucose Encounter for prostate cancer screening PSA 1.22 on 10/31/2023. Poor short term memory (~2022) Folic acid deficiency (03/14/23) folic acid low at 5.2 with hemoglobin 12.5 on 03/14/2023. Vitamin B12 705 with folic acid 24 on 10/31/2023. Greater than 24 with hemoglobin 12.7 of 11/30/2024. Right shoulder pain (01/18/23) X-ray of the right shoulder and humerus on 01/25/2023 with mild degenerative changes and no fracture Left shoulder pain (01/18/23) x-ray of the left shoulder on 01/25/2023 with degenerative changes with no fracture. Pain in right upper arm BMI 26.0-26.9,adult Pigmented skin lesion suspicious for malignant neoplasm (~2021) 0.5 cm left mid back, punch biopsy Revealed benign seborrheic keratosis 11/17/2022. Acute non-recurrent maxillary sinusitis Actinic keratosis BMI 25.0-25.9,adult Overweight (BMI 25.0-29.9) Epigastric abdominal pain Atypical chest pain BMI 23.0-23.9, adult Abdominal pain Eczema Seborrhea GERD (gastroesophageal reflux disease) Normal EGD on 03/17/2022. Cellulitis, scrotum Candidiasis of scrotum Contact dermatitis Dry skin Essential hypertension BMI 24.0-24.9, adult Diplopia Abnormal fasting glucose Fasting glucose 104 with hemoglobin A1c 5.8 on 08/30/2022. Fasting glucose 112 with hemoglobin A1c 5.7 on 03/14/2023. Fasting glucose 107 with hemoglobin A1c 5.8 on 10/31/2023. Fasting glucose 104 with hemoglobin A1c 5.8 with GFR 56 of 11/30/2024. Surgical History Surgical History History of coronary artery stent placement History of hand surgery 5th digit History of surgery on lower extremity left leg- muscle graft History of shoulder surgery left bicep tendon repair Family History Family History Mother Diabetes mellitus Family history of cardiovascular disease, Onset Age: 56 Grandparent Diabetes mellitus Family history of cardiovascular disease Cerebrovascular accident Father Family history of cardiovascular disease, Onset Age: 76 Cerebrovascular accident Social History Social History Smoking packs per day: 1 Smoking cigarettes per day: 20.0 Years smoked: 15 Smoking pack-years: 15.00 Smoking status: Former smoker Tobacco type: cigarettes Alcohol intake: never Substance use: never Substance use type: does not use Current Housing: Decline to Answer Concerned About Future Housing: Decline to Answer Difficulty Paying Gas/Electric Bills: Decline to Answer Difficulty Paying for Meds: Decline to Answer Currently Unemployed: Decline to Answer Education: Decline to Answer Difficulty w/ Childcare or Family Care: Decline to Answer Living arrangements: with family Occupation/Education: occupation 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 ) Neurological: alert and oriented Last oral intake: >/= 8 hours ASA classification: III Emergent: no Anesthetic plan: proceed Anesthesia type and monitoring: general GIVS and standard monitoring Results Review: All pre-operative results and documents have been reviewed as part of the pre- operative evaluation. Ex smoker, quit 1983, s/p PTCA x 3 total, pt without cp or sob, he can walk 1 fo s, no cp or sob. Cleared by cardiology for GI procedure. Informed Consent: The patient's anesthetic plan and its attendant risks and benefits were dis cussed with the patient/family/POA. Questions were solicited and answers provided to the satisfaction of the patient/family/POA.
--- NOTE | 2025-06-10 07:54 | P.HP_ITS ---
H&P: HPI History of Present Illness Date/Time: 06/10/25 07:54 Chief Complaint: Screening colonosc Narrative: This is the patient's first colonoscopy after 10 years.. There are no GI symptoms and there is no family history of colorectal cancer. Review of Systems Review of Systems: All systems reviewed & are unremarkable except as noted in HPI and below FOR[facility]LY [facility], [facility] Past Medical History Medical History History of heart attack 2006 CAD (coronary artery disease) Colon cancer screening COVID (04/29/22) fully vaccinated, tested positive 05/01/2022. Requests treatment, Paxlovid. COVID-19 10/24/2023. Renal insufficiency BUN 11 with creatinine 1.37 with GFR 56 08/30/2022. BUN 10, creatinine 1.31 with GFR 59 on 03/14/2023. BUN 12, creatinine 1.16 with GFR normal at 67 on 10/31/2023. Chronic kidney disease (CKD) stage G3a/A1, moderately decreased glomerular filtration rate (GFR) between 45-59 mL/min/1.73 square meter and albuminuria creatinine ratio less than 30 mg/g BUN 11 with creatinine 1.37 with GFR 56 08/30/2022. BUN 10, creatinine 1.31 with GFR 59 on 03/14/2023. BUN 12, creatinine 1.16 with GFR normal at 67 on 10/31/2023. BUN 50, creatinine 1.35 with GFR 56 of 11/30/2024. At low risk for fall Elevated glucose Encounter for prostate cancer screening PSA 1.22 on 10/31/2023. Poor short term memory (~2022) Folic acid deficiency (03/14/23) folic acid low at 5.2 with hemoglobin 12.5 on 03/14/2023. Vitamin B12 705 with folic acid 24 on 10/31/2023. Greater than 24 with hemoglobin 12.7 of 11/30/2024. Right shoulder pain (01/18/23) X-ray of the right shoulder and humerus on 01/25/2023 with mild degenerative changes and no fracture Left shoulder pain (01/18/23) x-ray of the left shoulder on 01/25/2023 with degenerative changes with no fracture. Pain in right upper arm BMI 26.0-26.9,adult Pigmented skin lesion suspicious for malignant neoplasm (~2021) 0.5 cm left mid back, punch biopsy Revealed benign seborrheic keratosis 11/17/2022. Acute non-recurrent maxillary sinusitis Actinic keratosis BMI 25.0-25.9,adult Overweight (BMI 25.0-29.9) Epigastric abdominal pain Atypical chest pain BMI 23.0-23.9, adult Abdominal pain Eczema Seborrhea GERD (gastroesophageal reflux disease) Normal EGD on 03/17/2022. Cellulitis, scrotum Candidiasis of scrotum Contact dermatitis Dry skin Essential hypertension BMI 24.0-24.9, adult Diplopia Abnormal fasting glucose Fasting glucose 104 with hemoglobin A1c 5.8 on 08/30/2022. Fasting glucose 112 with hemoglobin A1c 5.7 on 03/14/2023. Fasting glucose 107 with hemoglobin A1c 5.8 on 10/31/2023. Fasting glucose 104 with hemoglobin A1c 5.8 with GFR 56 of 11/30/2024. Surgical History Surgical History History of coronary artery stent placement History of hand surgery 5th digit History of surgery on lower extremity left leg- muscle graft History of shoulder surgery left bicep tendon repair Family History Family History Mother Diabetes mellitus Family history of cardiovascular disease, Onset Age: 56 Grandparent Diabetes mellitus Family history of cardiovascular disease Cerebrovascular accident Father Family history of cardiovascular disease, Onset Age: 76 Cerebrovascular accident Social History Social History Smoking packs per day: 1 Smoking cigarettes per day: 20.0 Years smoked: 15 Smoking pack-years: 15.00 Smoking status: Former smoker Tobacco type: cigarettes Alcohol intake: never Substance use: never Substance use type: does not use Current Housing: Decline to Answer Concerned About Future Housing: Decline to Answer Difficulty Paying Gas/Electric Bills: Decline to Answer Difficulty Paying for Meds: Decline to Answer Currently Unemployed: Decline to Answer Education: Decline to Answer Difficulty w/ Childcare or Family Care: Decline to Answer Living arrangements: with family Occupation/Education: occupation 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 Spiritual care concerns: No Meds Home Medications and Allergies Home Medications ?Medication ?Instructions ?Recorded ?Confirmed ?Type aspirin 81 mg tablet,delayed 81 mg PO DAILY 01/21/21 0 05/28/25 History release (Adult Aspirin Regimen) arginine HCl (L-arginine) 1,000 mg 1,000 mg PO DAILY 0 11/05/21 05/28/25 History tablet nitroglycerin 0.4 mg sublingual 0.4 mg sublingual Q5M PRN chest 02/25/22 02/05/25 Rx tablet pain #60 tabs cholecalciferol (vitamin D3) 25 1,000 unit PO DAILY 05/28/25 History mcg (1,000 unit) tablet (Vitamin D3) fluorouracil 5 % topical cream 1 applic topical BID AL N lesions 02/15/24 02/05/25 History (Efudex) tizanidine 4 mg tablet 4 mg PO TID PRN muscle spast icity 04/18/24 02/05/25 Rx #60 tabs atorvastatin 40 mg tablet 40 mg PO DAILY #90 tabs 08/2605/28/25 Rx folic acid 1 mg tablet 1 mg PO DAILY #30 tabs 09/1305/28/25 Rx pantoprazole 40 mg tablet,delayed 40 mg PO QAM #90 tab s 09/17/24 05/28/25 Rx release (Protonix) carvedilol 3.125 mg tablet 3.125 mg PO BID #180 tabs 0 10/15/24 05/28/25 Rx ramipril 10 mg capsule 10 mg PO DAILY #90 caps 10/2805/28/25 Rx cyanocobalamin (vitamin B-12) 1,000 mcg PO DAILY 12/0305/28/25 History 1,000 mcg tablet dapagliflozin propanediol 10 mg 10 mg PO QAM #30 tabs 12/03/24 05/28/25 Rx tablet (Farxiga) levothyroxine 50 mcg tablet 50 mcg PO DAILY #90 tabs 0 01/28/25 05/28/25 Rx hydrocodone 7.5 mg-acetaminophen 1 tablet PO Q6H PRN p ain #120 tabs 02/11/25 05/28/25 Rx 325 mg tablet Allergies Allergy/AdvReac Type Severity Reaction Status Date / Time No Known Allergies Allergy Verified 06/10/25 06:53 Vital Signs Vital Signs - 24 hr 06/10/25 06:57 Temperature 97.5 F L Pulse Rate 69 Respiratory Rate 18 Blood Pressure 146/75 H Pulse Oximetry 97 Oxygen Delivery Room Air Exam Const: General: cooperative and healthy appearing Resp: Effort & Inspection: normal respiratory effort and able to speak in complete sentences Auscultation: clear to auscultation bilaterally Cardio: Rate: regular rate Rhythm: regular rhythm GI: Inspection: normal to inspection GI Palp: No No hepatosplenomegaly present Auscultation: normal bowel sounds Rectal Exam: deferred Skin: General skin exam: normal color Psych: Appearance: grossly normal Mental Status: mental status grossly normal Assessment and Plan Assessment and plan (1) Colon cancer screening: Code(s): Z12.11 - Encounter for screening for malignant neoplasm of colon Status: Acute Assessment and Plan: The patient is deemed a good candidate for the procedure. Consent signed. Will proceed.
[2025-06-10 08:14] VITALS: BP 99/67; PULSE 62; RESP 19; O2SAT 97
[2025-06-10 08:24] VITALS: BP 97/66; PULSE 59; RESP 16; O2SAT 98
[2025-06-10 08:34] VITALS: BP 127/73; PULSE 61; RESP 16; O2SAT 99
== END 2025-06-10 08:44 | disposition home or self-care (01) ==
PROVIDERS: PCP Family Medicine; Referring Provider Family Medicine; Visit Provider Internal Medicine Gastroenterology
PROC: 0DJD8ZZ Inspection of Lower Intestinal Tract, Via Natural or Artificial Opening Endoscopic (ICD-10-PCS; CPT 45378; principal; 2025-06-10 08:00)
DX: Z12.11 Encounter for screening for malignant neoplasm of colon (principal); K57.30 Diverticulosis of large intestine without perforation or abscess without bleeding; I12.9 Hypertensive chronic kidney disease with stage 1 through stage 4 chronic kidney disease, or unspecified chronic kidney disease; N18.31 Chronic kidney disease, stage 3a; K21.9 Gastro-esophageal reflux disease without esophagitis; E53.8 Deficiency of other specified B group vitamins; I25.10 Atherosclerotic heart disease of native coronary artery without angina pectoris; I25.2 Old myocardial infarction; R41.3 Other amnesia; Z79.82 Long term (current) use of aspirin; Z79.84 Long term (current) use of oral hypoglycemic drugs; Z79.891 Long term (current) use of opiate analgesic; Z98.890 Other specified postprocedural states; Z95.5 Presence of coronary angioplasty implant and graft; Z87.891 Personal history of nicotine dependence; Z82.49 Family history of ischemic heart disease and other diseases of the circulatory system
CPT/HCPCS: G0121; J2704; J7120

== ENCOUNTER 2025-06-23 17:25 | Emergency (ER) | payer MEDICARE, BC, SELFPAY ==
--- NOTE | ~2025-06-23 | US_ITS ---
EXAMINATION: US venous doppler LE RT, 06/23/2025 18:10 CDT HISTORY: r/o dvt Comparison: None Technique: Elias-scale and color Doppler images were attempted of the lower saphenofemoral junction, common femoral vein,superficial femoral vein, proximal deep femoral vein, proximal deep femoral vein, popliteal vein and posterior tibial veins. Findings: Deep Venous System:Normal flow, augmentation and compressibility. No echogenic thrombus identified. The contralateral saphenofemoral junction appears unremarkable. Superficial Venous SystemNo superficial thrombophlebitis. Soft tissues: Soft tissues are unremarkable. Impression: Negative for DVT. Reviewed, dictated and finalized at location P. Impression: Negative for DVT.
--- NOTE | ~2025-06-23 | CT_ITS ---
Examination: CTA abd aorta runoff Clinical History: decreased pulse R foot, pain RLE Technique: Helical images lung bases to feet 150 mL Omnipaque 350 Coronal, sagittal reformats. Multiplanar MIPS CT images acquired with automatic exposure control for dose reduction DLP: 854 mGy-cm Comparison: None Findings: CTA Findings: Abdominal aorta: No aneurysm or dissection. Celiac: Patent. SMA: Patent. SEAN: Patent. Renal arteries: Patent. Small bilateral accessory Common iliac arteries: Patent. External iliac arteries: Patent. Hypogastrics: Patent. CFAs: Patent. SFAs: Patent. Profundas: Patent. Popliteal arteries: Patent. Runoff: Difficult to assess distally. Right leg three-vessel runoff proximally, but RX SPECIALIST probably occlusion of ankle. Insufficient opacification to evaluate MARIE and peroneal beyond ankle. Left leg three-vessel runoff. Non-CTA findings: Lung bases: Clear. Visualized heart and pericardium: Unremarkable. Liver: Unremarkable. Gallbladder: Unremarkable. Spleen: Unremarkable. Pancreas: At least partial divisum. Adrenal glands: Unremarkable. Kidneys: Bilateral pelviectasis. Right kidney- No renal stones. No hydronephrosis. Left kidney- No renal stones. No hydronephrosis. Distal esophagus/stomach: Unremarkable. Small bowel loops: Normal caliber and wall thickness. Colon: Diverticula. Normal caliber and wall thickness. Normal RLQ appendix. Nodes: No enlarged nodes. Peritoneum: No ascites. No free air. Urinary bladder: Unremarkable. Prostate: Unremarkable. Bones: No acute bony abnormality. Soft tissues: Unremarkable. IMPRESSION: 1. No significant aortoiliac or fem-pop disease. 2. Right leg three-vessel runoff proximally. RX SPECIALIST probably occludes distally. MARIE and peroneal patent to ankle but insufficient opacification for evaluation thereafter. Reviewed, dictated and finalized at location R. IMPRESSION: 1. No significant aortoiliac or fem-pop disease. 2. Right leg three-vessel runoff proximally. RX SPECIALIST probably occludes distally. A TA and peroneal patent to ankle but insufficient opacification for evaluation t hereafter.
[2025-06-23 17:26] VITALS: BP 170/87; PULSE 87; RESP 16; TEMP 37; O2SAT 98
--- OUTSIDE RECORDS SUMMARY | 2025-06-23 17:27 | XMS_ITS | Encounter Summary ---
Author Organization [employer] Address 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 Gender Identity Not on file Sexual Orientation Not on file documented as of this encounter Plan of Treatment Not on file documented as of this encounter Procedures Procedure Name Priority Date/Time Associated Diagnosis Comments TROPONIN (W/REFLEX CKMB/CK) Routine 09/22/2006 5:00 AM GAS PUMPING STATION SUPERVISOR CBC WITH DIFFERENTIAL Routine 09/22/2006 5:00 AM GAS PUMPING STATION SUPERVISOR CBC WITH DIFFERENTIAL Routine 09/22/2006 5:00 AM GAS PUMPING STATION SUPERVISOR CBC WITH DIFFERENTIAL Routine 09/21/2006 4:34 PM GAS PUMPING STATION SUPERVISOR CBC WITH DIFFERENTIAL Routine 09/21/2006 4:34 PM GAS PUMPING STATION SUPERVISOR POC ACTIVATED CLOTTING TIME Routine 09/21/2006 4:17 PM GAS PUMPING STATION SUPERVISOR POC ACTIVATED CLOTTING TIME Routine 09/21/2006 2:55 PM GAS PUMPING STATION SUPERVISOR POC ACTIVATED CLOTTING TIME Routine 09/21/2006 11:57 AM GAS PUMPING STATION SUPERVISOR documented in this encounter Results * CBC WITH DIFFERENTIAL (09/22/2006 5:00 AM GAS PUMPING STATION SUPERVISOR) NEUTROPHILS 65 45 - 70 % INTERFAC [...] 0.20 K/uL INTERFACE SYSTEM 09/22/2006 5:00 AM GAS PUMPING STATION SUPERVISOR Dung Arthur MD HEMATOLOGY ORDERABLES Fin al Result Performing Organization Address City/State/[facility] Co de Phone Number INTERFACE SYSTEM Refer to clinic/hospital department * (ABNORMAL) CBC WITH DIFFERENTIAL (09/22/2006 5:00 AM GAS PUMPING STATION SUPERVISOR) Pathologist [facility] WBC 7.1 [...] 12.4 fL INTERFACE SYSTEM 09/22/2006 5:00 AM GAS PUMPING STATION SUPERVISOR Dung Arthur MD HEMATOLOGY ORDERABLES Fin al Result Performing Organization Address [facility] de Phone Number INTERFACE SYSTEM Refer to clinic/hospital department * TROPONIN (W/REFLEX CKMB/CK) (09/22/2006 5:00 AM GAS PUMPING STATION SUPERVISOR) Pathologist [facility] TROPONIN T 0.01 <=0.03 ng/mL INTERFACE SYSTEM TROPONIN T INTERP Negative INTERFACE SYSTEM 09/22/2006 5:00 AM GAS PUMPING STATION SUPERVISOR Dung Arthur MD CHEMISTRY ORDERABLES Rebekah l Result Performing Organization Address [facility] de Phone Number INTERFACE SYSTEM Refer to clinic/hospital department * CBC WITH DIFFERENTIAL (09/21/2006 4:34 PM GAS PUMPING STATION SUPERVISOR) Pathologist [facility] NEUTROPHILS 57 [...] 0.20 K/uL INTERFACE SYSTEM 09/21/2006 4:34 PM GAS PUMPING STATION SUPERVISOR Dung Arthur MD HEMATOLOGY ORDERABLES Fin al Result Performing Organization Address [facility] de Phone Number INTERFACE SYSTEM Refer to clinic/hospital department * (ABNORMAL) CBC WITH DIFFERENTIAL (09/21/2006 4:34 PM GAS PUMPING STATION SUPERVISOR) Pathologist [facility] WBC 5.4 [...] 12.4 fL INTERFACE SYSTEM 09/21/2006 4:34 PM GAS PUMPING STATION SUPERVISOR Dung Arthur MD HEMATOLOGY ORDERABLES Fin al Result Performing Organization Address [facility] Phone Number INTERFACE SYSTEM Refer to clinic/hospital department * POC ACTIVATED CLOTTING TIME (09/21/2006 4:17 PM GAS PUMPING STATION SUPERVISOR) ACT POC 132 Seconds INTERFACE SYSTEM Comment: Note sheath pull range change effective 03/18/2006. ACT value for sheath pull at [facility] has been established to be < or = to 1 40. (See also Nursing Procedures for sheath pull in related nursing areas) 09/21/2006 4:17 PM GAS PUMPING STATION SUPERVISOR Dung Arthur MD POINT OF CARE TESTING Fin al Result Performing Organization Address [facility] Phone Number INTERFACE SYSTEM Refer to clinic/hospital department * POC ACTIVATED CLOTTING TIME (09/21/2006 2:55 PM GAS PUMPING STATION SUPERVISOR) ACT POC 164 Seconds INTERFACE SYSTEM Comment: Note sheath pull range change effective 03/18/2006. ACT value for sheath pull at [facility] has been established to be < or = to 1 40. (See also Nursing Procedures for sheath pull in related nursing areas) 09/21/2006 2:55 PM GAS PUMPING STATION SUPERVISOR Dung Arthur MD POINT OF CARE TESTING Fin al Result Performing Organization Address [facility] Phone Number INTERFACE SYSTEM Refer to clinic/hospital department * POC ACTIVATED CLOTTING TIME (09/21/2006 11:57 AM GAS PUMPING STATION SUPERVISOR) ACT POC 151 Seconds INTERFACE SYSTEM Comment: Note sheath pull range change effective 03/18/2006. ACT value for sheath pull at [facility] has been established to be < or = to 1 40. (See also Nursing Procedures for sheath pull in related nursing areas) 09/21/2006 11:5 7 AM GAS PUMPING STATION SUPERVISOR us Dung Arthur MD POINT OF CARE TESTING Estrada al Result INTERFACE SYSTEM Refer to clinic/hospital department documented in this encounter Visit Diagnoses Diagnosis Coronary atherosclerosis of [place] coronary artery- Primary documented in this encounter
--- NOTE | 2025-06-23 17:47 | PC.NURSE ---
74yo M to ER c/o acute onset of RLE pain around 1300. No redness/warmth/edema. Denies injury. Denies hx of blood clot, takes daily ASA. +cardiac stent hx. Denies chest pain or SOB. Pt s/p colonoscopy 06/10. Pt A&Ox4, speech clear. RR even and unlabored. Skin WDL. Pt hypertensive upon arrival, compliant with antihypertensives- says it was a long walk to the ED. Will repeat. Call light in reach, family at bedside.
--- NOTE | 2025-06-23 18:33 | ED_ITS ---
HPI - Extremity Problem General Chief complaint: Extremity Problem,Nontraumatic <FRANCIS Hilario Last Filed: 06/23/25 23:51> Stated complaint: right calf pain <FRANCIS Hilario Last Filed: 06/23/25 23:51> Time Seen by Provider: 06/23/25 17:44 <FRANCIS Hilario Last Filed: 06/23/25 23:51> Source: patient <FRANCIS Hilario Last Filed: 06/23/25 23:51> Mode of arrival: ambulatory <FRANCIS Hilario Last Filed: 06/23/25 23:51> Limitations: no limitations <FRANCIS Hilario Last Filed: 06/23/25 23:51> History of Present Illness HPI Narrative: Patient is a 74-year-old male, with PMH of CAD s/p stents, who presented to ED with c/o R calf pain. Patient reports he was standing up in his kitchen around 1pm today when he began having pain in his R calf. States he began walking around but pain continued to worsen. Attempted walking up stairs, but had worsening pain. Denies swelling of extremity. Denies numbness. Denies Hx of DVT. <FRANCIS Hilario Last Filed: 06/23/25 23:51> Related Data Home medications: Home Medications ?Medication ?Instructions ?Recorded ?Confirmed ?Last Taken ?Type aspirin 81 mg tablet,delayed 81 mg PO DAILY 01/21/21 0 05/28/25 05/28/25 History release (Adult Aspirin Regimen) arginine HCl (L-arginine) 1,000 mg 1,000 mg PO DAILY 0 11/05/21 05/28/25 05/28/25 History tablet cholecalciferol (vitamin D3) 25 1,000 unit PO DAILY 05/28/25 05/28/25 History mcg (1,000 unit) tablet (Vitamin D3) fluorouracil 5 % topical cream 1 applic topical BID AL N lesions 02/15/24 02/05/25 Unknown History (Efudex) cyanocobalamin (vitamin B-12) 1,000 mcg PO DAILY 12/0305/28/25 05/28/25 History 1,000 mcg tablet <Abby Holloway PA-C - Last Filed: 06/23/25 23:51> Allergies/Adverse reactions: Allergies Allergy/AdvReac Type Severity Reaction Status Date / Time No Known Allergies Allergy Verified 06/23/25 17:44 <Abby Holloway PA-C - Last Filed: 06/23/25 23:51> Review of Systems 2 Review of Systems: All systems reviewed & are unremarkable except as noted in HPI. <Abby Holloway PA-C - Last Filed: 06/23/25 23:51> All systems reviewed & are unremarkable except as noted in HPI and below < Abby Holloway PA-C - Last Filed: 06/23/25 23:51> [facility] Past Medical History Medical History: Medical History (Updated 06/24/25 @ 15:26 by Seth Gonsalves MD) Peripheral arterial disease decreased flow right lower extremity on CT angiogram of the abdomen and aorta 06/23/2025. History of heart attack 2006 CAD (coronary artery disease) Colon cancer screening Colonoscopy 06/10/2025 with poor prep with recheck in 6 months with 2 day prep. COVID (04/29/22) fully vaccinated, tested positive 05/01/2022. Requests treatment, Paxlovid. COVID-19 10/24/2023. Renal insufficiency BUN 11 with creatinine 1.37 with GFR 56 08/30/2022. BUN 10, creatinine 1.31 with GFR 59 on 03/14/2023. BUN 12, creatinine 1.16 with GFR normal at 67 on 10/31/2023. Chronic kidney disease (CKD) stage G3a/A1, moderately decreased glomerular filtration rate (GFR) between 45-59 mL/min/1.73 square meter and albuminuria creatinine ratio less than 30 mg/g BUN 11 with creatinine 1.37 with GFR 56 08/30/2022. BUN 10, creatinine 1.31 with GFR 59 on 03/14/2023. BUN 12, creatinine 1.16 with GFR normal at 67 on 10/31/2023. BUN 50, creatinine 1.35 with GFR 56 of 11/30/2024. At low risk for fall Elevated glucose Encounter for prostate cancer screening PSA 1.22 on 10/31/2023. Poor short term memory (~2022) Folic acid deficiency (03/14/23) folic acid low at 5.2 with hemoglobin 12.5 on 03/14/2023. Vitamin B12 705 with folic acid 24 on 10/31/2023. Greater than 24 with hemoglobin 12.7 of 11/30/2024. Right shoulder pain (01/18/23) X-ray of the right shoulder and humerus on 01/25/2023 with mild degenerative changes and no fracture Left shoulder pain (01/18/23) x-ray of the left shoulder on 01/25/2023 with degenerative changes with no fracture. Pain in right upper arm BMI 26.0-26.9,adult Pigmented skin lesion suspicious for malignant neoplasm (~2021) 0.5 cm left mid back, punch biopsy Revealed benign seborrheic keratosis 11/17/2022. Acute non-recurrent maxillary sinusitis Actinic keratosis BMI 25.0-25.9,adult Overweight (BMI 25.0-29.9) Epigastric abdominal pain Atypical chest pain BMI 23.0-23.9, adult Abdominal pain Eczema Seborrhea GERD (gastroesophageal reflux disease) Normal EGD on 03/17/2022. Cellulitis, scrotum Candidiasis of scrotum Contact dermatitis Dry skin Essential hypertension BMI 24.0-24.9, adult Diplopia Abnormal fasting glucose Fasting glucose 104 with hemoglobin A1c 5.8 on 08/30/2022. Fasting glucose 112 with hemoglobin A1c 5.7 on 03/14/2023. Fasting glucose 107 with hemoglobin A1c 5.8 on 10/31/2023. Fasting glucose 104 with hemoglobin A1c 5.8 with GFR 56 of 11/30/2024. <Abby Holloway PA-C - Last Filed: 06/23/25 23:51> Surgical History Surgical History: Surgical History History of coronary artery stent placement History of hand surgery 5th digit History of surgery on lower extremity left leg- muscle graft History of shoulder surgery left bicep tendon repair <Abby Holloway PA-C - Last Filed: 06/23/25 23:51> Family History Family History: Family History Mother Diabetes mellitus Family history of cardiovascular disease, Onset Age: 56 Grandparent Diabetes mellitus Family history of cardiovascular disease Cerebrovascular accident Father Family history of cardiovascular disease, Onset Age: 76 Cerebrovascular accident <Abby Holloway PA-C - Last Filed: 06/23/25 23:51> Social History Social History: Social History Smoking packs per day: 1 Smoking cigarettes per day: 20.0 Years smoked: 15 Smoking pack-years: 15.00 Smoking status: Former smoker Tobacco type: cigarettes Alcohol intake: never Substance use: never Substance use type: does not use Current Housing: Decline to Answer Concerned About Future Housing: Decline to Answer Difficulty Paying Gas/Electric Bills: Decline to Answer Difficulty Paying for Meds: Decline to Answer Currently Unemployed: Decline to Answer Education: Decline to Answer Difficulty w/ Childcare or Family Care: Decline to Answer Living arrangements: with family Occupation/Education: occupation 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 HEAD: Normocephalic, atraumatic. RESPIRATORY: Airway patent, respirations nonlabored. Clear to auscultation bilaterally, no rales, rhonchi, wheezing. CARDIOVASCULAR: Regular rate and rhythm without murmurs, rubs, or gallops. Left foot DP and PT pulses are easily palpable. Right foot PT pulse is easily palpable, but unable to palpate DP pulse. Difficult to doppler. MUSCULOSKELETAL: Moves all extremities. No gross deformities. Mild TTP in R posterior calf. No swelling throughout RLE. Sensation intact. SKIN: Warm, dry, normal color. Normal temperature/color of BLE, symmetric. NEURO: A&O X3. Speech clear. Steady gait. No ataxic movements. PSYCHIATRIC: Appropriate mood and affect. Normal interaction. <Abby Holloway PA-C - Last Filed: 06/23/25 23:51> Course ICT SALES REPRESENTATIVE/PA Physician Supervision This visit was performed by both a physician and an APC. I performed all aspects of the MDM as documented. <Seng Starr MD - Last Filed: 06/25/25 12:06> Vital Signs Vital signs: Vital Signs Temperature 98.6 F 06/23/25 17:26 Pulse Rate 87 06/23/25 17:26 Respiratory Rate 16 06/23/25 17:26 Blood Pressure 170/87 H 06/23/25 17:26 Pulse Oximetry 98 06/23/25 17:26 Temperature 98.6 F 06/23/25 17:26 Pulse Rate 57 L 06/23/25 23:49 Respiratory Rate 18 06/23/25 23:49 Blood Pressure 160/96 H 06/23/25 23:49 Pulse Oximetry 96 06/23/25 23:49 <Abby Holloway PA-C - Last Filed: 06/23/25 23:51> Vital Signs Temperature 98.6 F 06/23/25 17:26 Pulse Rate 87 06/23/25 17:26 Respiratory Rate 16 06/23/25 17:26 Blood Pressure 170/87 H 06/23/25 17:26 Pulse Oximetry 98 06/23/25 17:26 Temperature 98.6 F 06/23/25 17:26 Pulse Rate 57 L 06/23/25 23:49 Respiratory Rate 18 06/23/25 23:49 Blood Pressure 160/96 H 06/23/25 23:49 Pulse Oximetry 96 06/23/25 23:49 <Seng Starr MD - Last Filed: 06/25/25 12:06> MDM - Extremity (Nontraumatic) MDM Narrative Medical decision making narrative: Patient presented to ED with right calf pain that began this afternoon, worse with ambulation. Vital signs are stable upon arrival. Patient in no acute distress. Exam of lower extremities fairly unremarkable. Venous doppler US of RLE negative for DVT. Had difficulty palpating the DP pulse on patient's right foot. Attempted to Doppler, but had difficulty with this as well. Was able to utilize bedside US machine to confirm some area of arterial blood flow in DP region, though small and faint. Noticeably weaker than L leg. CTA of aorta with runoff obtained: Does show narrowing at distal right anterior tibial artery and dorsalis pedis arteries. Still patent but very small. Possible occlusion of the distal right posterior tibial artery at the ankle, however patient does have a strong easily palpable pulse there on exam. Low suspicion for complete occlusion at this time. Discussed case with Dr. Raphael, vascular surgery @ [facility], advised CTA fndings are consistent with PAD. Advised these findings do not explain calf pain. Recommended maximal medical therapy with ASA/statin, GERONIMO, f/u with PCP. Discussed these recommendations with patient. Discussed likelihood of muscular calf strain. He is in agreement with following up with PCP. Discussed strict return precautions/signs of limb ischemia. Patient voiced understanding. Discharged in stable condition <Abby Holloway PA-C - Last Filed: 06/23/25 23:51> Medical Records Attestation: I reviewed the patient's medical records. <FRANCIS Hilario Last Filed: 06/23/25 23:51> Lab Data Attestation: I reviewed the patient's lab results. <Abby Holloway PA-C - Last Filed: 06/23/25 23:51> Result diagrams: 06/23/25 19:26 06/23/25 19:26 <FRANCIS Hilario Last Filed: 06/23/25 23:51> Labs: Lab Results 06/23/25 Range/Units 19:26 WBC 5.4 (4.5-10.0) K/mm3 RBC 4.04 L (4.6-6.20) M/mm3 Hgb 12.6 L (14.0-18.0) g/dL Hct 38.0 L (42.0-52.0) % MCV 94.1 (80-100) fl MCH 31.2 (26-34) pg MCHC 33.2 (32-36) g/dl RDW 12.6 (11.5-14.5) % Plt Count 177 (150-375) k/mm3 MPV 11.0 H (7.4-10.4) fl Immature Gran % (Auto) 0.2 (0-0.5) % Neut % (Auto) 56.4 (45.5-73.1) % Lymph % (Auto) 30.2 (18.3-44.2) % Petroleum % (Auto) 9.7 H (2.6-8.5) % Eos % (Auto) 2.8 (0-4.4) % Baso % (Auto) 0.7 (0.2-1.2) % Lymph # (Auto) 1.62 (0.9-3.2) K/mm3 Petroleum # (Auto) 0.5 (0.1-0.6) K/mm3 Eos # (Auto) 0.2 (0-0.3) K/mm3 Baso # (Auto) 0.0 (0.0-0.1) K/mm3 Abs Immat Gran (auto) 0.01 (0.00-0.031) K/mm3 Absolute Neuts (auto) 3.0 (1.3-6.7) K/mm3 Absolute Nucleated RBC 0.000 (0.0-0.012) K/mm3 Nucleated RBC % 0.0 (0.0-0.2) % PT 13.5 (11.1-14.7) Seconds INR 1.0 APTT 26.8 (22.3-36.8) Seconds Sodium 138 (137-145) mmol/L Potassium 4.4 (3.4-5.0) mmol/L Chloride 103 (98-107) mmol/L Carbon Dioxide 28 (22-30) mmol/L Anion Gap 7 (4-12) mmol/L BUN 17 (9-20) mg/dL Creatinine 1.28 (0.7-1.3) mg/dL Estim Creat Clear Calc 47 ml/min Estimated GFR 55 L (59 - ) Glucose 93 (65-110) mg/dL Calcium 9.3 (8.4-10.2) mg/dL Total Bilirubin 1.2 (0.2-1.3) mg/dL AST 27 (17-59) U/L ALT 21 (6-50) U/L Alkaline Phosphatase 54 (38-126) U/L Total Protein 7.0 (6.3-8.2) g/dL Albumin 4.3 (3.5-5.1) g/dL <Abby Holloway PA-C - Last Filed: 06/23/25 23:51> Lab Results 06/23/25 Range/Units 19:26 WBC 5.4 (4.5-10.0) K/mm3 RBC 4.04 L (4.6-6.20) M/mm3 Hgb 12.6 L (14.0-18.0) g/dL Hct 38.0 L (42.0-52.0) % MCV 94.1 (80-100) fl MCH 31.2 (26-34) pg MCHC 33.2 (32-36) g/dl RDW 12.6 (11.5-14.5) % Plt Count 177 (150-375) k/mm3 MPV 11.0 H (7.4-10.4) fl Immature Gran % (Auto) 0.2 (0-0.5) % Neut % (Auto) 56.4 (45.5-73.1) % Lymph % (Auto) 30.2 (18.3-44.2) % Petroleum % (Auto) 9.7 H (2.6-8.5) % Eos % (Auto) 2.8 (0-4.4) % Baso % (Auto) 0.7 (0.2-1.2) % Lymph # (Auto) 1.62 (0.9-3.2) K/mm3 Petroleum # (Auto) 0.5 (0.1-0.6) K/mm3 Eos # (Auto) 0.2 (0-0.3) K/mm3 Baso # (Auto) 0.0 (0.0-0.1) K/mm3 Abs Immat Gran (auto) 0.01 (0.00-0.031) K/mm3 Absolute Neuts (auto) 3.0 (1.3-6.7) K/mm3 Absolute Nucleated RBC 0.000 (0.0-0.012) K/mm3 Nucleated RBC % 0.0 (0.0-0.2) % PT 13.5 (11.1-14.7) Seconds INR 1.0 APTT 26.8 (22.3-36.8) Seconds Sodium 138 (137-145) mmol/L Potassium 4.4 (3.4-5.0) mmol/L Chloride 103 (98-107) mmol/L Carbon Dioxide 28 (22-30) mmol/L Anion Gap 7 (4-12) mmol/L BUN 17 (9-20) mg/dL Creatinine 1.28 (0.7-1.3) mg/dL Estim Creat Clear Calc 47 ml/min Estimated GFR 55 L (59 - ) Glucose 93 (65-110) mg/dL Calcium 9.3 (8.4-10.2) mg/dL Total Bilirubin 1.2 (0.2-1.3) mg/dL AST 27 (17-59) U/L ALT 21 (6-50) U/L Alkaline Phosphatase 54 (38-126) U/L Total Protein 7.0 (6.3-8.2) g/dL Albumin 4.3 (3.5-5.1) g/dL <Seng Starr MD - Last Filed: 06/25/25 12:06> Imaging Data Attestation: I personally reviewed and interpreted this imaging study as follows: < Abby Holloway PA-C - Last Filed: 06/23/25 23:51> Radiologist's impression: CTA aorta runoff: Impression: Vascular findings: The abdominal aorta is nondilated. There is no aneurysm or dissection. The mesenteric and renal arteries are all widely patent. 30% stenosis of the right common iliac artery due to calcified plaque. Right leg: The right common femoral, deep femoral, and superficial femoral arteries are normal. The popliteal artery is normal. There is 3 vessel runoff in the proximal right calf. The distal right anterior tibial artery and dorsalis pedis arteries appear to be patent but are very small. Probable occlusion of the mid distal right posterior tibial artery at the ankle. Left leg: The right common femoral, deep femoral, superficial femoral, and popliteal arteries are normal. There is a normal variant of high takeoff of the left posterior tibial artery as the 1st branches off of the popliteal. There is 3 vessel runoff in the left calf with mild stenosis of the distal posterior tibial artery of the ankle. Nonvascular findings: Lung bases are clear. The liver, gallbladder, pancreas, spleen, adrenal glands, kidneys are unremarkable. Bowel loops are nondilated. There is mild diverticulosis of the sigmoid colon without evidence of acute diverticulitis. No acute inflammatory changes are seen involving the bowel. Mild degenerative changes in the 1st digit metatarsophalangeal joints bilaterally. No acute fracture dislocation is seen. No focal osteolysis is seen to suggest osteomyelitis. No incidental findings. <FRANCIS Hilario Last Filed: 06/23/25 23:51> Discharge Plan Discharge Clinical Impression: Peripheral arterial disease, Strain of right calf muscle <FRANCIS Hilario Last Filed: 06/23/25 23:51> Patient Disposition: Home <FRANCIS Hilario Last Filed: 06/23/25 23:51> Condition: Stable <FRANCIS Hilario Last Filed: 06/23/25 23:51> Instructions: Antibiotic Form, Peripheral Artery Disease (ED), Muscle Cramp (ED) <FRANCIS Hilraio Last Filed: 06/23/25 23:51> Additional Instructions: Follow-up closely with your primary care doctor and assistant store manager for further evaluation of peripheral arterial disease. It is recommended to obtain GERONIMO (ankle brachial index). Recommend Tylenol, ice if needed for pain. Return to the ED if you experience worsening or severe pain, swelling or coldness of leg, numbness of leg, fall or injury, or any other symptoms of concern. <FRANCIS Hilario Last Filed: 06/23/25 23:51> Patient Language: Serbian <FRANCIS Hilario Last Filed: 06/23/25 23:51> Prescriptions: No Action nitroglycerin 0.4 mg tablet, sublingual 0.4 mg sublingual Q5M PRN (Reason: chest pain) Qty: 60 0RF Rx Instructions: do not exceed 3 doses per episode arginine HCl (L-arginine) 1,000 mg tablet 1,000 mg PO DAILY aspirin [Adult Aspirin Regimen] 81 mg tablet,delayed release (DR/EC) 81 mg PO DAILY cholecalciferol (vitamin D3) [Vitamin D3] 25 mcg (1,000 unit) tablet 1,000 unit PO DAILY cyanocobalamin (vitamin B-12) 1,000 mcg tablet 1,000 mcg PO DAILY dapagliflozin propanediol [Farxiga] 10 mg tablet 10 mg PO QAM Qty: 30 11RF fluorouracil [Efudex] 5 % cream 1 applic topical BID PRN (Reason: lesions) Patient Comments: no longer using Rx Instructions: apply sufficient amount to cover all lesions twice daily for 2 weeks on and then 2 weeks off until clear tizanidine 4 mg tablet 4 mg PO TID PRN (Reason: muscle spasticity) Qty: 60 11RF atorvastatin 40 mg tablet 40 mg PO DAILY Qty: 90 3RF folic acid 1 mg tablet 1 mg PO DAILY Qty: 30 11RF pantoprazole [Protonix] 40 mg tablet,delayed release (DR/EC) 40 mg PO QAM Qty: 90 3RF carvedilol 3.125 mg tablet 3.125 mg PO BID Qty: 180 3RF ramipril 10 mg capsule 10 mg PO DAILY Qty: 90 3RF levothyroxine 50 mcg tablet 50 mcg PO DAILY Qty: 90 3RF hydrocodone-acetaminophen 7.5-325 mg tablet 1 tablet PO Q6H PRN (Reason: pain) Qty: 120 0RF Patient Comments: pt not taking <Abby Holloway PA-C - Last Filed: 06/23/25 23:51> Follow-up/Referrals: Seth Gonsalves MD [Primary Care Provider, Family Practice] <Abby Holloway PA-C - Last Filed: 06/23/25 23:51> Time of Disposition: 23:24 <Abby Holloway PA-C - Last Filed: 06/23/25 23:51> 23:24 <Seng Starr MD - Last Filed: 06/25/25 12:06>
--- NOTE | 2025-06-23 19:29 | PC.NURSE ---
Unable to palpate R pedal pulse by this RN or PA Unable to doppler R pedal pulse by this RN or PA Bounding R posterior pulse Bedside ultrasound demonstrates small, faint arterial flow to R foot. Will proceed with CTA. PIV and blood work obtained, sent to lab. Pt tolerated well. Resting, denies further needs
[2025-06-23 19:35] LABS: Hematocrit 38.0 % (42.0-52.0); Hemoglobin 12.6 g/dL (14.0-18.0); Immature Granulocyte Percent A 0.2 % (0-0.5); Lymphocytes Absolute Auto 1.62 K/mm3 (0.9-3.2); Mean Corpuscular HGB Conc 33.2 g/dl (32-36); Mean Corpuscular Hemoglobin 31.2 pg (26-34); Mean Corpuscular Volume 94.1 fl (80-100); Nucleated Red Blood Cells Absolute Auto 0.000 K/mm3 (0.0-0.012); Nucleated Red Blood Cells Perc 0.0 % (0.0-0.2); Platelet Count Result 177 k/mm3 (150-375); Red Blood Count 4.04 M/mm3 (4.6-6.20); White Blood Count 5.4 K/mm3 (4.5-10.0)
[2025-06-23 19:46] LABS: Alanine Aminotransferase 21 U/L (6-50); Albumin Level 4.3 g/dL (3.5-5.1); Alkaline Phosphatase 54 U/L (38-126); Anion Gap 7 mmol/L (4-12); Aspartate Amino Transferase 27 U/L (17-59); Bilirubin,Total 1.2 mg/dL (0.2-1.3); Blood Urea Nitrogen 17 mg/dL (9-20); Calcium 9.3 mg/dL (8.4-10.2); Carbon Dioxide 28 mmol/L (22-30); Chloride 103 mmol/L (98-107); Estimated CRCL calculation 47 ml/min; Estimated Glomerular Filt Rate 55; Glucose 93 mg/dL (65-110); Potassium 4.4 mmol/L (3.4-5.0); Sodium 138 mmol/L (137-145); Total Protein 7.0 g/dL (6.3-8.2)
[2025-06-23 19:48] VITALS: BP 151/90; PULSE 64; RESP 18; O2SAT 96
[2025-06-23 19:52] LABS: INR 1.0; Partial Thromboplastin Time 26.8 Seconds (22.3-36.8); Prothrombin Time 13.5 Seconds (11.1-14.7)
[2025-06-23 21:28] VITALS: BP 148/77; PULSE 63; RESP 18; O2SAT 98
[2025-06-23 23:49] VITALS: BP 160/96; PULSE 57; RESP 18; O2SAT 96
--- NOTE | 2025-06-23 23:49 | PC.NURSE ---
CTA disc provided to patient
== END 2025-06-23 23:51 | disposition home or self-care (01) ==
PROVIDERS: Emergency Provider Physician Assistant; PCP Family Medicine
DX: S86.111A Strain of other muscle(s) and tendon(s) of posterior muscle group at lower leg level, right leg, initial encounter (principal); I73.9 Peripheral vascular disease, unspecified; I25.2 Old myocardial infarction; I25.10 Atherosclerotic heart disease of native coronary artery without angina pectoris; I12.9 Hypertensive chronic kidney disease with stage 1 through stage 4 chronic kidney disease, or unspecified chronic kidney disease; N18.31 Chronic kidney disease, stage 3a; K21.9 Gastro-esophageal reflux disease without esophagitis; X50.0XXA Overexertion from strenuous movement or load, initial encounter
CPT/HCPCS: 36415; 75635; 80053; 85025; 85610; 85730; 93971; 99284; Q9967